=== PATIENT | male | born 1970 | race African-American/Black ===

== ENCOUNTER → 2017-01-09 | Outpatient (CLI) | payer OTHER ==
[~2017-01-09] MED LIST: ABILIFY PO; ABILIFY5 MG PO; ACETAMINOPHEN PO; ACTOPLUSMET; ALBUTEROL17 GM INH; AMLODIPINE BESY10 MG PO; AMLODIPINE BESYL5 MG PO; ASCORBIC ACID500 MG PO; ASPIRIN EC81 M1 PO; ASPIRIN325 M1 PO; ASPIRIN81 M1 PO; ASPIRINEC PO; AVANDIA; B COMPLEX1 CA1 PO; BAYER ASPIRIN325 M1 PO; BUMETANIDE2 M1 PO; BUMEX2 MG PO; CADUET 5 MG/401 TAB PO; CARVEDILOL25 MG PO; CELEBREX PO; CELEBREX100 MG PO; CIPRO PO; CLONAZEPAM2 MG PO; COMBIVENT U/D3 ML INH; COREG PO; COZAAR PO; COZAAR100 MG PO; CYMBALTA PO; CYMBALTA30 MG PO; DEPAKOTE; DESYREL100 MG PO; DESYREL50 MG PO; DISCONTINUED MED; E.E.S. 200200 MG/5 M PO; EFFEXOR; FISH OIL 1,0001 CAP PO; FISH OIL 1,0001 EAC1 PO; FISH OIL 1,001000 MG PO; FISH OIL 1,2001 EAC1 PO; FISH OIL500 MG PO; FLEXERIL PO; FLONASE16 GM; GABAPENTIN600 MG PO; GEODAN PO; GEODON80 MG PO; GLUCOTROL; HUMULIN R100 U/ML INJ; HUMULIN R100 U/ML SUBQ; HYDRALAZINE HC100 MG PO; HYDRALAZINE HCL50 MG PO; HYZAAR 50-12.51 TAB; IBUPROFEN PO; IBUPROFEN400 MG PO; K-DUR20 ME1 PO; K-DUR20 ME2 PO; KCL; KCL PO; KLONOPIN; KLONOPIN PO; KLONOPIN0.5 MG PO; KLOR-CON PO; LACTULOSE10 G/15 M4 PO; LANTUS SUBQ; LANTUS100 U/ML INJ; LANTUS100 U/ML SUBQ; LANTUS100 UNITS/ SUBQ; LASIX; LASIX PO; LEVAQUIN PO; LEVOTHROID100 MC1 PO; LEVOTHYROXINE100 MCG PO; LIPITOR20 MG PO; LISINOPRIL PO; LODINE; LOPID600 MG PO; LOSARTAN POTAS100 MG PO; LOSARTAN POTASS50 MG PO; LOW DOSE ASPIRI81 M1 PO; MAG-OX 400400 M1 PO; MAG-OX 400400 MG PO; MAG-OXIDE400 MG PO; MAGNESIUM400 MG PO; MEDROL PO; MELATONIN10 M1 PO; MELATONIN5 M2 PO; METAMUCIL1 PKT PO; METFORMIN; METFORMIN PO; METOLAZONE2.5 MG PO; METOLAZONE5 MG PO; MICRO-K PO; MIRALAX255 GM PO; MULTI VITAMIN1 EACH PO; MULTI-VITAMIN1 TAB PO; MULTIVITAMIN1 UDCAP PO; NAPROXEN PO; NEURONTIN300 MG PO; NEURONTIN600 MG PO; NEXIUM PO; NIACIN PO; NIACIN500 M2 PO; NORVASC; NORVASC PO; NORVASC10 MG PO; NOVOLIN R100 UNITS/ SUBQ; NOVOLOG100 U/M1; NOVOLOG100 U/ML INJ; NOVOLOG100 U/ML SUBQ; NOVOLOG100 UNITS/ SUBQ; OCEAN45 ML; PEPCID PO; PERPHENAZINE8 MG; PHENERGAN25 MG PO; PLAVIX PO; POTASSIUM CHLO20 ME1 PO; PREDNISONE PO; PRILOSEC PO; RISPERIDONE; SEROQUEL PO; SEROQUEL XR PO; SEROQUEL XR150 MG PO; SEROQUEL XR200 MG PO; SYNTHROID; SYNTHROID PO; SYNTHROID0.1 MG PO; SYNTHROID112 MCG PO; SYNTHROID88 MCG PO; TESTOSTERON100 MG/ML IM; TESTOSTERONE; TOPAMAX; TRAZODONE; TRAZODONE HCL100 MG PO; TRAZODONE HCL150 MG PO; TRICOR; TRICOR PO; TUSSIN MAX15 MG/5 M1 PO; ULTRAM PO; VERAMYST10 GM NS; VICODIN 5/500 T1 TAB PO; VITAMIN B 12 DAILY; VITAMIN B-121000 MCG PO; VITAMIN C PO; VITAMIN C1000 M2 PO; VITAMIN C500 M5 PO; VITAMIN D1000 UNI1 PO; WELLBUTRIN PO; WELLBUTRIN XL PO; WELLBUTRIN XL150 M1 PO; WELLBUTRIN75 M1 PO; XALATAN OP; ZAROXYLYN PO; ZINC100 MG PO; ZINC50 M1 PO; ZOCOR PO; ZOCOR20 MG PO; ZOLOFT PO; [UNRECOGNIZED DRUG - OTHER]; [UNRECOGNIZED DRUG - OTHER]; [UNRECOGNIZED DRUG - OTHER] PO
--- NOTE | ~2017-01-09 | CR150 ---
[facility] A Service of [facility] & [facility] RADIOLOGY TEXT RESULTS PATIENT: DIAMOND KATZ LOCATION: [facility] : 66 UNIT #: [id number] AGE: [address]: Bibi Chacko MD SEX: M ORDER DR: [id number] [facility] [address] [place], [place] [address] [id number] O MR#: [id number] Acc #: [id number] NAME: DIAMOND KATZ : 1970 SEX: M STUDY DATE/TIME: 01/09/2017 17:30 UNIT: [facility] ROOM: STUDY DESCRIPTION: CR Hip Min 2 Views Lt Attending Physician: Bibi Chacko M.D. Referring Physician: Bibi Chacko M.D. Ordering Physician: Bibi Chacko M.D. Primary Care Physician: No Primary Care Physician MEDICAL IMAGING REPORT This report is preliminary unless electronic signature is present EXAM Left hip 2 views 01/09/2017, 17:30 hours. HISTORY 47-year-old man complaining of 2-month history of left hip pain. No known injury. COMPARISON Left hip film 03/30/2016. FINDINGS AP, pelvis and frog lateral view of the left hip were performed. There is no fracture or plain film evidence of avascular crisis. There is left greater than right hip joint space loss and spurring, suggesting an element of osteoarthritis. The sacrum and sacroiliac joints appear normal. IMPRESSION There is no fracture or plain film evidence of avascular necrosis. There is left greater than right hip joint space loss with spurring, similar to 03/30/2016. Findings suggest osteoarthritis. Dictated by... Letty Guardado M.D. THIS IS AN ELECTRONICALLY VERIFIED REPORT Letty Guardado M.D. at 01/11/2017 8:41 AM SMM/gz TD: 01/10/2017 13:36 JOB #: [id number] MEDICAL IMAGING REPORT Page 1 of 1 COPY
== END | disposition home or self-care (01) ==
LOC: CRAD 17:16
DX: M25.552 Pain in left hip (principal); M76.892 Other specified enthesopathies of left lower limb, excluding foot
CPT/HCPCS: 73502